=== PATIENT | male | born 1960 | race Two or more races ===

== ENCOUNTER → 2018-07-05 | Outpatient (CLI) | payer OTHER ==
--- NOTE | 2018-07-05 16:44 | RAD ---
Lumbar spine, 3 views, 07/05/2018: HISTORY: Back pain, disability determination The lumbar vertebral heights are well-maintained. There are mild scattered marginal spurs. There are mild degenerative changes involving the facet joints in the lower lumbar spine. No fracture is identified. Sclerotic changes are noted at both sacroiliac joints. The paraspinous soft tissues are unremarkable. IMPRESSION: 1. Mild scattered degenerative changes. 2. No acute bony abnormality is detected. Electronically signed by: Trey Hwang MD (07/05/2018 4:41 PM) [facility]
--- NOTE | 2018-07-05 16:45 | RAD ---
Right knee, 2 views, 07/05/2018: HISTORY: Knee pain, meniscus issues The knee joint space is well maintained. There is mild marginal spurring. No fracture or dislocation is identified. No large joint effusion is seen. IMPRESSION: 1. Mild degenerative change. 2. No acute bony abnormality is detected. Electronically signed by: Trey Hwang MD (07/05/2018 4:42 PM) [facility]
== END | disposition home or self-care (01) ==
LOC: RAD 12:57
PROVIDERS: ATTEND Internal Medicine Infectious Disease
DX: M17.11 Unilateral primary osteoarthritis, right knee (principal); M51.36 Other intervertebral disc degeneration, lumbar region; M76.891 Other specified enthesopathies of right lower limb, excluding foot
CPT/HCPCS: 72100; 73560